=== PATIENT | female | born 1950 | race Caucasian/White ===

== ENCOUNTER → 2018-03-26 | Outpatient (REF) | payer MEDICARE ==
[~2018-03-26] MED LIST: ACET-1966 PO; AMOX-559 PO; AMOX1TAB9 PO; ANAS1TAB12 PO; AZIT-17 PO; BISA-107 PO; CEFU250T67 PO; CHOL100062 PO; CHOL200018 PO; DOCU100C49 PO; ESTR0.5T18 PO; ESTR1PAT3 TD; ESTRODIAL PATCH; EXE25PT PO; EXEM25TA4 PO; FLAX100027 PO; FLAX1CAP4 PO; GABA-547 PO; GLUC-103 PO; GLUC100026 PO; GLUCOSAMINE 1,1 EACH PO; LETPT GT; LINA290C PO; LISI-362 PO; LOSA25TA52 PO; MULT1TAB54 PO; OMEG500C5 PO; ONDA8TAB98 PO; POLYTRIM OU; SIMV-49 PO; TAMO20TA24 PO; VENL37.594 PO; relizen PO
== END ==
LOC: ZZSTITCHES 11:23
PROVIDERS: ATTEND Physician Assistant
DX: Z48.817 Encounter for surgical aftercare following surgery on the skin and subcutaneous tissue (principal); A49.01 Methicillin susceptible Staphylococcus aureus infection, unspecified site
CPT/HCPCS: 87070; 87077; 87186

== ENCOUNTER → 2018-04-07 | Outpatient (CLI) | payer MEDICARE ==
[~2018-04-07] MED LIST changes: +LINA145C PO; +LOSA-54 PO; -LOSA25TA52 PO; +LOSA25TA57 PO
--- NOTE | 2018-04-08 08:27 | RADIOLOGY IMAGING REPORT ---
FACILITY: [facility] - [place] PATIENT NAME: HEATH IBARRA : [id number] MR: [id number] V: [id number] EXAM DATE: ORDERING PHYSICIAN: MICHAEL STEVE TECHNOLOGIST: Garmia Arrieta PROCEDURE:BILATERAL DIGITAL SCREENING MAMMOGRAM WITH CAD ASSISTED INTERPRETATION & 3D TOMOSYNTHESIS COMPARISON:Prior mammograms 04/04/17, 04/02/16, 04/07/15, 03/02/15. INDICATIONS:SCREENING FINDINGS: Scattered fibroglandular elements are seen throughout the breasts. The parenchymal pattern has remained stable allowing for difference in mammographic technique & patient positioning. There is an area of architectural distortion from previous lumpectomy in the 12 o'clock position of the Right breast. DIAGNOSTIC CATEGORY 2--BENIGN FINDING. RECOMMENDATIONS: ROUTINE MAMMOGRAM AND CLINICAL EVALUATION. IMPRESSION: BIRADS 2: Benign finding. No significant abnormality is seen. Dictated by: Inga Camp M.D. on 04/07/2018 at 17:07 Transcribed by: JUAN on 04/08/2018 at 8:11 Approved by: Inga Camp M.D. on 04/08/2018 at 8:26 [facility]
== END ==
LOC: MAMO 04:38
PROVIDERS: ATTEND Internal Medicine Medical Oncology
DX: Z12.31 Encounter for screening mammogram for malignant neoplasm of breast (principal); C50.419 Malignant neoplasm of upper-outer quadrant of unspecified female breast; Z17.0 Estrogen receptor positive status [ER+]; Z85.3 Personal history of malignant neoplasm of breast
CPT/HCPCS: 77063; 77067

== ENCOUNTER 2018-04-09 06:50 | Outpatient (RCR) | payer MEDICARE ==
--- NOTE | 2017-04-12 08:29 | NUR ---
NAEEM rec'd request from pt to help with a [employer] appeal for coverage on labs that were drawn at [facility] on 01/30/17. NAEEM and BAGGER MEAT collaborated on a note and submitted that along with the original provider's note indicating necessity. NAEEM notified pt that the submission to [facility] was made this AM.
--- NOTE | 2017-04-17 23:36 | ONCOLOGY FOLLOW UP NOTE ---
EVENT DATE: 04/10/2017 REASON FOR FOLLOWUP Breast cancer. CHIEF COMPLAINT Patient feels well today. HISTORY OF PRESENT ILLNESS Mariel returns to clinic for a follow-up visit today. Symptomatically, she reports that she is doing quite well. She reports no concerning breast findings at home, including skin changes, as well as lumps/bumps in breast and underarms. She reports no fevers, chills or sweats. Her appetite is good, and her weight has been stable. She has had no change in bowel or bladder habits. She tends to sleep pretty well. She is currently trying to get over a cold, however. She does report some sinus congestion and cough. She recently underwent a follow-up mammogram, and she was happy to hear that this showed benign findings. She has significantly increased her exercise since our last visit, and she reports that she has walked about 150 miles since we met in July. REVIEW OF SYSTEMS Otherwise negative, and all systems were reviewed. PAST MEDICAL HISTORY 1. Hypertension. 2. History of left bundle branch block. 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 * Late 2014: The patient reportedly has had abnormal mammogram. * April 13, 2015: The patient undergoes ultrasound-guided biopsy of hypoechoic mass at the 12 o'clock position of the right breast. Pathology: Mucinous carcinoma of the breast, ER strongly positive (99%), NM strongly positive (73.7%), HER2 1+ (not overexpressed), Ki-67=35.2% * May 18, 2015: Lumpectomy and sentinel lymph node biopsy. Pathology: Invasive mucinous carcinoma, 12 mm in size. Grade I. Biopsy site change was noted adjacent to tumor. Tumor was present 1.5 mm from the inferior margin, 3 mm from the superior margin, and 3 mm from the lateral margin. All remaining margins are greater than 5 mm. No lymphovascular invasion was identified. A total of 5 lymph nodes from the axilla were negative. This was staged as a pT1c N0 cM0 breast cancer. * May 19, 2015: Oncotype DX reveals a recurrence score of 9 (low risk for recurrence). * August 05, 2015: Completion of adjuvant radiation therapy. * September 02, 2015: Initiation of adjuvant Arimidex. Per the record, the patient had tried both Arimidex and Femara with poor tolerability. * October 25, 2015: Aromasin started, with therapy complicated by hot flashes, arthralgias, headaches. * November 2015: The patient discontinues adjuvant aromatase inhibitor therapy. * January 31, 2016: Tamoxifen initiated. The patient felt achy with this and was unable to take it. * February 2016: The patient attempts adjuvant Arimidex again and quickly discontinues it due to dizziness and problems with ambulation. * Ongoing clinical followup. SOCIAL HISTORY The patient is . She lives here in [place]. There is no history of alcohol abuse or illicit drug use. The patient is a nonsmoker. FAMILY HISTORY There is a history of leukemia in the patient's sister. There is no history of breast cancer. her father at age 66 with a head and neck cancer. MEDICATIONS 1. Simvastatin 20 mg p.o. daily. 2. Vitamin D3, 4000 U p.o. daily. 3. Bisacodyl as needed. 4. Docusate as needed. 5. Flax seed/[place] fatty acid supplement. 6. Losartan 25 mg p.o. daily. 7. The patient also takes a multivitamin. ALLERGIES SULFA, CLARITHROMYCIN. There is also a noted ADVERSE REACTION TO CODEINE. VITAL SIGNS Temperature is 97.7, blood pressure 153/83, heart rate is 92, respirations 16, oxygen saturation is 92% on room air. PHYSICAL EXAMINATION GENERAL: Patient is alert and oriented times three, in no apparent distress, sitting in the exam room chair. She appears quite healthy. She is interactive and pleasant and in good spirits. HEENT: Exam reveals anicteric. NEUROLOGIC: Exam is grossly nonfocal and her gait is normal. EXTREMITIES: Exam reveals no edema, clubbing or cyanosis. SKIN: Exam reveals no concerning rash or lesion. LABORATORY STUDIES Reviewed per the [facility] record. IMAGING Recent mammogram was unremarkable. 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 Mariel continues to do well without signs or symptoms to suggest recurrence of her breast cancer. She remains off of adjuvant therapy due to tolerance issues. She is taking very good care of herself otherwise. She is eating a healthful diet, and she is exercising regularly. We discussed the results of her recent mammogram, which was unremarkable. We reviewed her labs, as well. Her vitamin D level has risen while on supplementation, and she continues on a calcium supplement as well. She would prefer to follow up here in one year, and I think this is reasonable. I will see her next March after repeat labs. We discussed that tumor markers at this point do not necessarily play a role in her surveillance. We discussed the rationale for this. Patient had several additional questions for me today, and I believe I answered all of her questions to her satisfaction. BETTY
[~2018-04-09 06:50] MED LIST changes: -LINA145C PO; -LOSA-54 PO
[2018-04-09 15:25] VITALS: BP 133/82
[2018-04-09] MEDS ORDERED: LOSA-54 PO (15:27)
[2018-04-09] MEDS ORDERED: LINA145C PO (15:27)
--- NOTE | 2018-04-10 12:43 | ONCOLOGY FOLLOW UP NOTE ---
EVENT DATE: April 09, 2018 CHIEF COMPLAINT Followup for breast cancer. HISTORY OF PRESENT ILLNESS Patient is a 67-year-old female who is seen today in one year followup for stage I ER/NM positive mucinous carcinoma of the right breast. Overall, she is doing well. She continues with hot flashes. She did not find Lexapro to be helpful and this was discontinued. IBS symptoms are under fair to good control with Linzess. She had a squamous cell carcinoma excised from her right lower extremity. This required three separate surgeries to obtain clean margins. She then developed a staph infection but this has now resolved with doxycycline. She denies any bony arthralgias and general sense of well-being is good. ONCOLOGIC HISTORY Invasive mucinous carcinoma of right breast. * Late 2014: The patient reportedly has had abnormal mammogram. * April 13, 2015: The patient undergoes ultrasound-guided biopsy of hypoechoic mass at the 12 o'clock position of the right breast. Pathology: Mucinous carcinoma of the breast, ER strongly positive (99%), NM strongly positive (73.7%), HER2 1+ (not overexpressed), Ki-67=35.2% * May 18, 2015: Lumpectomy and sentinel lymph node biopsy. Pathology: Invasive mucinous carcinoma, 12 mm in size. Grade I. Biopsy site change was noted adjacent to tumor. Tumor was present 1.5 mm from the inferior margin, 3 mm from the superior margin, and 3 mm from the lateral margin. All remaining margins are greater than 5 mm. No lymphovascular invasion was identified. A total of 5 lymph nodes from the axilla were negative. This was staged as a pT1c N0 cM0 breast cancer. * May 19, 2015: Oncotype DX reveals a recurrence score of 9 (low risk for recurrence). * August 05, 2015: Completion of adjuvant radiation therapy. * September 02, 2015: Initiation of adjuvant Arimidex. Per the record, the patient had tried both Arimidex and Femara with poor tolerability. * October 25, 2015: Aromasin started, with therapy complicated by hot flashes, arthralgias, headaches. * November 2015: The patient discontinues adjuvant aromatase inhibitor therapy. * January 31, 2016: Tamoxifen initiated. The patient felt achy with this and was unable to take it. * February 2016: The patient attempts adjuvant Arimidex again and quickly discontinues it due to dizziness and problems with ambulation. * Ongoing clinical followup. PAST MEDICAL HISTORY 1. Hypertension. 2. History of left bundle branch block. 3. Squamous cell carcinoma, January 2018. 4. Right breast cancer, March 2015. PAST SURGICAL HISTORY 1. Right lumpectomy, 05/18/2015. 2. Re-excision x3 of squamous cell carcinoma of right lower extremity. SOCIAL HISTORY Patient is . She is not working. She has two grown children. She does not smoke and there is no history of alcohol or drug use. FAMILY HISTORY Sister had leukemia. No history of breast cancer. Father at age 66 with head and neck cancer. MEDICATIONS 1. Glucosamine. 2. Simvastatin 20 mg daily. 3. Vitamin D3 4000 units daily. 4. Linzess. 5. Losartan 25 mg daily. 6. Multivitamin. ALLERGIES SULFAMETHOXAZOLE and CLARITHROMYCIN. Adverse reaction to CODEINE. PHYSICAL EXAMINATION VITAL SIGNS: BP 133/82, P 77, R 16, temperature 97.5, O2 sat 93%. GENERAL: Patient is a well-developed, well-nourished female in no acute distress. HEAD: Normocephalic, atraumatic. EYES: Sclerae anicteric. MOUTH: Moist mucous membranes. No lesions. NECK: Supple. No palpable adenopathy. BREAST: Status post right lumpectomy with mild scar tissue present. No evidence of recurrence. Left breast is without masses. LUNGS: Clear bilaterally. CARDIOVASCULAR: Heart rate regular, 76 per minute without murmur, S3 or S4. ABDOMEN: Soft, nontender with hypoactive bowel sounds. No organomegaly. EXTREMITIES: No edema. Healing incision over right lateral lower extremity. NEUROLOGIC: Nonfocal. . LABORATORY STUDIES CBC on February 26, 2018 showed a WBC 6.0, hemoglobin 13.6, hematocrit 40.4, platelets 256,000. CMP was within normal limits. ASSESSMENT AND PLAN The patient is a 67-year-old female diagnosed with stage I ER/NM positive mucinous carcinoma of the right breast in March 2015. Underwent right lumpectomy followed by radiation, completed July 2015. Attempted adjuvant therapy with Arimidex, Femara, Aromasin and tamoxifen, all of which were poorly tolerated. 1. Breast cancer. No signs of symptoms of disease recurrence. She was unable to take any of the adjuvant hormonal therapies but feels comfortable with her decision. 2. Breast surveillance. Bilateral mammogram on April 07, 2018 was BIRADS category 2. This will be repeated in March 2019. 3. Hot flashes. Ongoing, although she feels they may be slightly decreasing. She tried Lexapro but did not find this to be helpful. We briefly discussed gabapentin but at this time she defers. 4. Irritable bowel syndrome. Constipation more than diarrhea. She feels this is under fair to good control with Linzess. 5. Squamous cell carcinoma. Underwent excision of the lesion on the right lower extremity near the tibia. This required two other re-excisions. It became infected and she was treated with doxycycline. The wound is now healing. She will follow up with dermatology. 6. Follow up in one year for continued care. Mammogram will be done before that visit. BETTY
== END 2018-06-02 11:58 | disposition home or self-care (01) ==
LOC: ONC 06:50
PROVIDERS: ATTEND Internal Medicine Medical Oncology
DX: C50.911 Malignant neoplasm of unspecified site of right female breast (principal); Z17.0 Estrogen receptor positive status [ER+]; Z79.811 Long term (current) use of aromatase inhibitors; Z92.3 Personal history of irradiation; Z78.0 Asymptomatic menopausal state; Z90.11 Acquired absence of right breast and nipple; K52.9 Noninfective gastroenteritis and colitis, unspecified; Z12.11 Encounter for screening for malignant neoplasm of colon; I10 Essential (primary) hypertension
CPT/HCPCS: 99212

== ENCOUNTER → 2018-08-04 | Outpatient (CLI) | payer MEDICARE ==
[~2018-08-04] MED LIST changes: +LINA145C PO; +LOSA-54 PO
--- NOTE | 2018-08-04 12:53 | EKG ---
FACILITY: [facility] - [place] PATIENT NAME: HEATH IBARRA : [id number] MR: [id number] V: [id number] EXAM DATE: ORDERING PHYSICIAN: MARIBELL CONTEH TECHNOLOGIST: MARIA ANTONIA Lang Reason : PRE-OP Blood Pressure : / mmHG Vent. Rate : 056 BPM Atrial Rate : 056 BPM P-R Int : 160 ms QRS Dur : 140 ms QT Int : 468 ms P-R-T Axes : 072 038 057 degrees QTc Int : 451 ms Sinus bradycardia Possible biatrial enlargement Left bundle branch block Abnormal ECG No previous ECGs available Confirmed by ORLANDO WAKEFIELD ([id number]) on 08/04/2018 4:58:39 PM Referred By: YADY / Mica Confirmed By:ORLANDO WAKEFIELD
== END ==
LOC: RESP 12:43
PROVIDERS: ATTEND Anesthesiology
DX: Z01.812 Encounter for preprocedural laboratory examination (principal); Z01.810 Encounter for preprocedural cardiovascular examination; R94.31 Abnormal electrocardiogram [ECG] [EKG]
CPT/HCPCS: 93005